=== PATIENT | male | born 1980 | race African-American/Black ===

== ENCOUNTER 2019-04-16 09:22 | Emergency (ER) | payer SELFPAY ==
[~2019-04-16] VITALS: Ht 182.9 cm; Wt 100.0 kg
[2019-04-16] MEDS ORDERED: ACETAMINOPHEN WITH CODEINE 300/30MG TABLET PO ONE (10:45)
[2019-04-16 10:52] VITALS: BP 126/76
== END 2019-04-16 10:50 | disposition home or self-care (01) ==
LOC: ER 10:05
DX: I83.92 Asymptomatic varicose veins of left lower extremity (principal); E11.9 Type 2 diabetes mellitus without complications; I10 Essential (primary) hypertension
CPT/HCPCS: 99283